=== PATIENT | male | born 1980 | race Caucasian/White ===

== ENCOUNTER → 2019-09-18 15:42 | Outpatient (CLI) | payer OTHER, SELFPAY ==
--- NOTE | 2019-09-18 | DI.MRI.S_ITS ---
PROCEDURE: MR ANKLE LT WO CON INDICATIONS: Plantar fascial fibromatosis TECHNIQUE: Noncontrast sagittal T1 spin echo and T2 fast spin echo with fat saturation, axial proton density fast spin echo and T2 fast spin echo with fat saturation, coronal T1 spin echo and T2 fast spin echo with fat saturation through the ankle/hindfoot. COMPARISON: [facility], CR, ANKLE 3 VIEWS LEFT, 08/24/2017, 20:31. [facility], CR, ANKLE 3 VIEWS LEFT, 09/08/2017, 3:52. [facility], MR, MR FOOT RT WO CON, 09/18/2019, 17:08. [facility], MR, MR FOOT LT WO CON, 09/18/2019, 18:39. [facility], MR, MR ANKLE RT WO CON, 09/18/2019, 16:40. FINDINGS: Image quality: Excellent. Bones and joints: No bone marrow contusions or fractures. No hindfoot coalitions. No osteochondral injuries of the talar dome. No pathologic joint effusions. Medial structures: The posterior tibialis, flexor digitorum longus, and flexor hallucis longus tendons are intact. There is fluid surrounding the posterior tibialis and flexor digitorum longus tendons in keeping with mild tenosynovitis. The posterior tibial neurovascular bundle appears normal within the tarsal tunnel, without extrinsic mass effect. The deep layer (anterior and posterior tibiotalar ligaments) and superficial layer (tibionavicular, tibiospring, and tibiocalcaneal ligaments) of the deltoid ligament appear normal. The spring ligament appears thickened with some intrasubstance signal change Lateral structures: The anterior talofibular, calcaneofibular, and posterior talofibular ligaments appear intact. More superiorly, the anterior and posterior tibiofibular ligaments appear intact, as is the intermalleolar ligament. The tibiofibular syndesmosis is normal in width at 2 mm or less. The peroneus longus and brevis tendons demonstrate normal location and morphology. There is low-grade peroneal tenosynovitis Adjacent bony peroneal tubercle and retrotrochlear prominence are normal in size. The sinus tarsi demonstrates normal fatty signal, without edema, fibrosis, or cyst formation. Visualized sinus tarsi components (cervical ligament, interosseous talocalcaneal ligament, roots of the inferior extensor retinaculum) appear normal. The calcaneonavicular and calcaneocuboid components of the bifurcate ligament appear intact. The dorsal calcaneocuboid ligament appears intact. Anterior structures: The tibialis anterior, extensor hallucis longus, and extensor digitorum longus tendons appear intact. The dorsal talonavicular ligament appears intact. Posterior and plantar structures: Achilles tendon is intact. There is mild medial band plantar fasciitis with thickening and this appears less conspicuous compared to the contralateral right side. No abductor digiti quinti muscle atrophy to suggest [place] neuropathy. IMPRESSION: Mild medial band plantar fasciitis at the calcaneal attachment, technically age-indeterminate Mild distal Achilles insertional tendinopathy Low-grade posterior tibialis, flexor digitorum longus, and peroneal tenosynovitis Age-indeterminate sprain of the spring ligament. Weightbearing ankle radiographs could be performed as clinically warranted to assess for pes planus. Dictated by: Ken Camarillo M.D. on 09/21/2019 at 9:14 Approved by: Ken Camarillo M.D. on 09/21/2019 at 9:47
--- NOTE | 2019-09-18 | DI.MRI.S_ITS ---
PROCEDURE: MR FOOT RT WO CON INDICATIONS: Plantar fascial fibromatosis TECHNIQUE: Noncontrast sagittal T1 spin echo and T2 fast spin echo with fat saturation, long-axis T1 spin echo and T2 fast spin echo with fat saturation, short-axis T1 spin echo and T2 fast spin echo with fat saturation through the forefoot. COMPARISON: [facility], MR, MR ANKLE RT WO CON, 09/18/2019, 16:40. FINDINGS: Image quality: Excellent. Bones and joints: No bone marrow contusions or metatarsal stress fractures. The sesamoid bones appear in expected positions, without internal edema. No metatarsophalangeal joint degeneration. No intraosseous lesions. Diffuse midfoot degenerative spurring and sclerosis. Soft tissues: Diffuse MTP joint effusions. There is mild focal fluid/edema at the dorsal aspect of the second metatarsal base of unclear etiology, this is subcentimeter in overall extent and indeterminate age. The second toe extensor tendons appear grossly intact and the appearance would be unusual for tenosynovitis. This could conceivably represent poorly defined ganglion cyst, technically nonspecific. A probable subcentimeter ganglion cyst and at the dorsal aspect of the first TMT joint image 28/5. The visualized plantar foot muscles demonstrate normal signal and bulk. Visualized flexor and extensor tendons appear intact, without tenosynovitis. The distal insertions of the peroneus brevis and longus tendons appear intact. The principal Lisfranc ligament appears intact. No soft tissue ganglion cysts or bursal fluid collections. Sagittal images demonstrate no evidence for plantar plate tears. IMPRESSION: Diffuse MTP joint effusions, technically non-specific clinical significance. Elsewhere, degenerative changes as above Subcentimeter focus of fluid/edema along the dorsal aspect of the second metatarsal base, probably chronic/degenerative although technically indeterminate recommend correlation with point tenderness The distal aspect of the plantar fascia appears grossly normal. Dictated by: Ken Camarillo M.D. on 09/21/2019 at 8:33 Approved by: Ken Camarillo M.D. on 09/21/2019 at 8:47
--- NOTE | 2019-09-18 | DI.MRI.S_ITS ---
PROCEDURE: MR ANKLE RT WO CON INDICATIONS: Plantar fascial fibromatosis TECHNIQUE: Noncontrast sagittal T1 spin echo and T2 fast spin echo with fat saturation, axial proton density fast spin echo and T2 fast spin echo with fat saturation, coronal T1 spin echo and T2 fast spin echo with fat saturation through the ankle/hindfoot. COMPARISON: None. FINDINGS: Image quality: Motion degraded examination. Bones and joints: No bone marrow contusions or fractures. No hindfoot coalitions. No osteochondral injuries of the talar dome. No pathologic joint effusions. Medial structures: The posterior tibialis, flexor digitorum longus, and flexor hallucis longus tendons are intact. There is mild posterior tibialis and flexor digitorum longus tenosynovitis The posterior tibial neurovascular bundle appears normal within the tarsal tunnel, without extrinsic mass effect. The deep layer (anterior and posterior tibiotalar ligaments) and superficial layer (tibionavicular, tibiospring, and tibiocalcaneal ligaments) of the deltoid ligament appear normal. The spring ligament components (superomedial calcaneonavicular, medioplantar oblique calcaneonavicular, and inferoplantar longitudinal ligaments) are intact. Lateral structures: The anterior talofibular, calcaneofibular, and posterior talofibular ligaments appear intact. More superiorly, the anterior and posterior tibiofibular ligaments appear intact, as is the intermalleolar ligament. The tibiofibular syndesmosis is normal in width at 2 mm or less. The peroneus longus and brevis tendons demonstrate normal location and morphology. There is peroneal tenosynovitis Adjacent bony peroneal tubercle and retrotrochlear prominence are normal in size. The sinus tarsi demonstrates normal fatty signal, without edema, fibrosis, or cyst formation. Visualized sinus tarsi components (cervical ligament, interosseous talocalcaneal ligament, roots of the inferior extensor retinaculum) appear normal. The calcaneonavicular and calcaneocuboid components of the bifurcate ligament appear intact. The dorsal calcaneocuboid ligament appears intact. Anterior structures: The tibialis anterior, extensor hallucis longus, and extensor digitorum longus tendons appear intact. The dorsal talonavicular ligament appears intact. Posterior and plantar structures: Achilles tendon is intact although there is minimal insertional tendinopathy, with mild adjacent soft tissue edema. Age-indeterminate medial plantar fasciitis IMPRESSION: Medial band plantar fasciitis, technically age-indeterminate Mild insertional Achilles tendinopathy Mild posterior tibialis, flexor digitorum longus and peroneal tenosynovitis Dictated by: Ken Camarillo M.D. on 09/21/2019 at 8:23 Approved by: Ken Camarillo M.D. on 09/21/2019 at 8:33
--- NOTE | 2019-09-18 | DI.MRI.S_ITS ---
PROCEDURE: MRFOOT LT WO CON INDICATIONS: Plantar fascial fibromatosis TECHNIQUE: Noncontrast sagittal T1 spin echo and T2 fast spin echo with fat saturation, long-axis T1 spin echo and T2 fast spin echo with fat saturation, short-axis T1 spin echo and T2 fast spin echo with fat saturation through the forefoot. COMPARISON: [facility], MR, MR ANKLE LT WO CON, 09/18/2019, 18:12. FINDINGS: Image quality: There is mild inhomogeneous fat saturation. Bones and joints: No bone marrow contusions or fractures. No evidence of stress reaction or stress fracture. The sesamoid bones appear in expected positions, without internal edema. There is minimal 1st metatarsophalangeal joint degeneration with minimal osteophytosis. A small amount of joint fluid is demonstrated at the 1st metatarsophalangeal joint. No intraosseous lesions. Soft tissues: The visualized plantar foot muscles demonstrate normal signal and bulk. Visualized flexor and extensor tendons appear intact, without tenosynovitis. The distal insertions of the peroneus brevis and longus tendons appear intact. The principal Lisfranc ligament appears intact. No soft tissue ganglion cysts. There is trace intermetatarsal bursa fluid within the 2nd and 3rd metatarsal interspaces. Sagittal images demonstrate no evidence for plantar plate tears. The visualized plantar fascia demonstrates no focal thickening or associated edema. IMPRESSION: 1. No focal thickening of the visualized plantar fascia or associated edema in the forefoot. 2. Minimal degeneration of the 1st metatarsophalangeal joint. Dictated by: Quincy Zapata M.D. on 09/21/2019 at 8:26 Approved by: Quincy Zapata M.D. on 09/21/2019 at 8:32
== END ==
PROVIDERS: PCP Family Medicine; Referring Provider Family Medicine; Visit Provider Podiatrist
DX: M72.2 Plantar fascial fibromatosis (principal); M65.871 Other synovitis and tenosynovitis, right ankle and foot; M65.872 Other synovitis and tenosynovitis, left ankle and foot; M25.474 Effusion, right foot; M79.671 Pain in right foot; M79.672 Pain in left foot; M76.61 Achilles tendinitis, right leg; M10.00 Idiopathic gout, unspecified site; R26.2 Difficulty in walking, not elsewhere classified; G89.29 Other chronic pain
CPT/HCPCS: 73718; 73721

== ENCOUNTER → 2019-12-29 11:37 | Outpatient (CLI) | payer OTHER, SELFPAY ==
--- NOTE | 2019-12-29 | DI.MRI.S_ITS ---
PROCEDURE: MR CERVICAL SPINE WO CON INDICATIONS: Cervicalgia TECHNIQUE: Noncontrast sagittal T1 spin echo and T2 fast spin echo, sagittal STIR, foraminal oblique sagittal T2 fast spin echo, and axial gradient echo or T2 fast spin echo through the cervical spine. COMPARISON: None. FINDINGS: Image quality: Excellent. Alignment and Curvature: Straightening of the normal lordotic curvature. Bone Marrow: Marrow demonstrates normal overall signal. Spinal Cord: Visualized spinal cord has normal size and signal. No cerebellar tonsillar herniation. Paraspinous Soft Tissues: No paravertebral masses. Prevertebral soft tissues are normal in thickness. C2-C3: Normal appearance. C3-C4: Moderate canal narrowing. Mild bilateral foraminal narrowing, with borderline nerve root compression on both sides. C4-C5: Mild canal narrowing. Mild to moderate left foraminal stenosis with neurocompression. No right foraminal narrowing. C5-C6: Mild canal narrowing. No right foraminal stenosis. Mild to moderate left foraminal narrowing with slight nerve root compression. C6-C7: Mild canal narrowing. Minimal right foraminal stenosis. Severe left foraminal narrowing with nerve root compression. C7-T1: No canal stenosis. Mild right foraminal narrowing with slight nerve root compression. Severe left foraminal stenosis with nerve root compression. IMPRESSION: Straightening of the normal lordotic curvature. Moderate C3-C4 canal stenosis. Numerous bilateral foraminal stenoses as detailed above. Diffuse facet arthropathy Dictated by: Ken Camarillo M.D. on 12/29/2019 at 14:14 Approved by: Ken Camarillo M.D. on 12/29/2019 at 14:56
[2019-12-29 13:44] LABS: Erythrocyte Sedimentation Rate 2 MM/HR (0-15)
[2019-12-29 14:47] LABS: C-Reactive Protein Quant 1.1 mg/dL (<1.0); Rheumatoid Factor 9.6 IU/mL (<12.0)
[2019-12-31 14:12] LABS: ANA Screen, IFA Negative (.)
[2019-12-31 21:36] LABS: CCP Antibodies IgG/IgA 4 units (0-19)
== END ==
PROVIDERS: PCP Family Medicine; Referring Provider Psychiatry & Neurology Neurology; Visit Provider Psychiatry & Neurology Neurology
DX: M54.2 Cervicalgia (principal); M48.02 Spinal stenosis, cervical region; M47.812 Spondylosis without myelopathy or radiculopathy, cervical region; G89.4 Chronic pain syndrome
CPT/HCPCS: 36415; 72141; 85651; 86038; 86140; 86200; 86430

== ENCOUNTER → 2020-03-18 06:40 | Outpatient (CLI) | payer OTHER, SELFPAY ==
--- NOTE | 2020-03-18 07:11 | DI.ECHO.S_ITS ---
Echocardiogram Report + + :Name: NIKOLAY CASTILLO Study Date: 03/18/2020 Height: 72 in : :[facility] Weight: 299 lb : : Gender: Male BSA: 2.5 m2 : :: 1980 Age: 39 yrs BP: 130/96 mmHg: :Reason For Study: Murmur : :Ordering Physician: QTC Performed By: Yanni Tony : :Referring: OG BURROUGHS : + + Interpretation Summary 1) Normal left ventricular size and systolic function (EF 55-60%). 2) There are no obvious focal wall motion abnormalities noted but poor endocardial definition reduces the sensitivity for the detection of such. 3) Normal right ventricular size and function. 4) No significant valvular abnormalities. 5) Compared to the Echo done 06/29/2014, no significant change. Procedure: A two-dimensional transthoracic echocardiogram with color flow and Doppler was performed. Most of the acoustic windows were suboptimal, but the best imaging was obtained from the parasternal window. Comparison is made with the echocardiogram of 06/29/2014. The patient was in normal sinus rhythm during the exam. Left Ventricle: The left ventricle is normal in size. Left ventricular wall thickness is at the upper limits of normal. There is no ventricular septal defect visualized. The ejection fraction is estimated to be 55-60%. There are no obvious focal wall motion abnormalities noted but poor endocardial definition reduces the sensitivity for the detection of such. Diastolic parameters suggest probable normal left ventricular diastolic function and normal filling pressures. Right Ventricle: The right ventricle is normal in size and function. Atria: Both atria are normal in size. Mitral Valve: The mitral valve is normal in structure and function. There is no mitral regurgitation noted. Aortic Valve: The aortic valve is normal in structure and function. There is no aortic valve stenosis. No aortic regurgitation is present. Tricuspid Valve: The tricuspid valve is normal in structure and function. Pulmonary artery pressures cannot be estimated because of the lack of a measurable TR jet velocity. Pulmonic Valve: The pulmonic valve is not well seen, but is grossly normal. There is a trace or physiologic amount of pulmonic regurgitation. Great Vessels: The aortic root is normal size. The ascending aorta is normal in size. The aortic arch is normal in size. The pulmonary artery is normal size. The inferior vena cava was not visualized. Pericardium/ Pleura There is no pericardial effusion. MMode/2D Measurements & Calculations LVIDd: 5.6 cm Ao root diam: 3.6 cm LVIDs: 3.5 cm asc Aorta Diam: 3.3 cm FS: 37.2 % Ao Arch Diam (Prox Trans): 3.1 cm EPSS: 0.32 cm IVSd: 0.94 cm LVPWd: 1.0 cm LV jasso. diameter/BSA (cm/m^2): 2.2 LV sys. diameter/BSA (cm/m^2): 1.4 LA A2 area: 15.5 cm2 RA long axis: 4.1 cm LA A4 area: 16.8 cm2 RA area: 15.9 cm2 LA length (vol): 4.8 cm RA vol: 52.0 ml LA vol: 46.0 ml RA : 20.6 ml/m2 LA vol index: 18.2 ml/m2 RVD1 (basal): 3.3 cm RVD2 (mid): 2.8 cm TAPSE: 2.4 cm Doppler Measurements & Calculations Ao V2 max: 122.3 cm/sec LVOT Max Lalo: 89.5 cm/sec Ao V2 mean: 88.1 cm/sec LV V1 max P.2 mmHg Ao max P.0 mmHg LV V1 VTI: 20.8 cm Ao mean P.4 mmHg sev ratio: 0.84 Ao V2 VTI: 24.9 cm MV E max lalo: 62.5 cm/sec PA V2 max: 78.9 cm/sec MV A max lalo: 63.2 cm/sec PA V2 mean: 53.6 cm/sec MV E/A: 0.99 PA mean P.4 mmHg Med Peak E' Lalo: 6.8 cm/sec PA Accel Time: 0.12 sec E/E' med: 9.2 Lat Peak E' Lalo: 11.3 cm/sec E/E' lat: 5.5 E/e' average: 7.3 MV dec time: 0.16 sec MV P1/2t: 47.6 msec MV P1/2t max lalo: 62.3 cm/sec MVA(P1/2t): 4.6 cm2 Reading Physician:10:52 AM
== END ==
PROVIDERS: PCP Family Medicine; Referring Provider Family Medicine; Visit Provider Physician Assistant
DX: R01.1 Cardiac murmur, unspecified (principal)
CPT/HCPCS: 93306

== ENCOUNTER 2020-03-18 07:58 | Emergency (ER) | payer OTHER, SELFPAY ==
[2020-03-18 08:10] VITALS: BP 137/89; PULSE 66; RESP 17; TEMP 36.4; O2SAT 99; BMI 40.5
--- NOTE | 2020-03-18 08:33 | DI.RAD.S_ITS ---
PROCEDURE: XR FOOT LT MIN 3V INDICATIONS: foot pain TECHNIQUE: 3 views of the foot were acquired. COMPARISON: None. FINDINGS: Bones: No fractures or dislocations. No suspicious bony lesions. Soft tissues: No tibiotalar joint effusion. Achilles tendon appears normal. IMPRESSION: No acute fracture. No osseous lesion. If symptoms and/or clinical suspicion for pathology persist, further assessment with repeat, or advanced imaging (e.g., CT, MRI, or bone scan) may be helpful for further assessment. Dictated by: Morelia Murrieta M.D. on 03/18/2020 at 8:51 Approved by: Morelia Murrieta M.D. on 03/18/2020 at 8:52
[2020-03-18 08:34] LABS: Add Manual Diff / Slide Review NO; Basophils Absolute Auto 0 /uL (0-100); Basophils Percent Auto 0.5 % (0-2); Eosinophils Absolute Auto 100 /uL (0-450); Eosinophils Percent Auto 1.9 % (2-4); Hematocrit 45.1 % (41-53); Hemoglobin 15.8 g/dL (13.5-17.5); Lymphocytes Absolute Auto 1700 /uL (1100-4500); Mean Corpuscular HGB Conc 35.1 % (30-36); Mean Corpuscular Hemoglobin 31.4 PG (26-34); Mean Corpuscular Volume 89.4 fL (80-100); Monocytes Absolute Auto 800 /uL (0-900); Monocytes Percent Auto 9.7 % (3-14); Neutrophils Absolute Auto 5200 /uL (1500-7000); Neutrophils Percent Auto 65.9 % (50-75); Platelet Count 221 X10^3/uL (150-400); Red Blood Cell Count 5.04 X10^6/uL (4.5-5.9); Red Cell Distribution Width 13.1 % (11.6-14.8); White Blood Cell Count 7.9 X10^3/uL (4.5-11.0)
--- NOTE | 2020-03-18 08:36 | ED.EXTPRO ---
HPI - Extremity Problem General Chief complaint: Extremity Problem,Nontraumatic Stated complaint: rule out gout in left foot Time Seen by Provider: 03/18/20 08:04 Source: patient Mode of arrival: Family Vehicle Limitations: no limitations History of Present Illness HPI Narrative: Patient has history of gout in the feet knees and upper extremities in the past. Last flare-up 1 year ago. Gets significant relief with indomethacin. Is not being followed by rheumatology. Or Podiatry. Sees [facility] provider. Patient did have MRIs of the both feet and ankles September 2019. Please see report below of the left foot. Flare-up started yesterday. Involves the MTP joints of the 2nd and 3rd toes on the left. Denies any new stress injury or footwear. Related Data Previous Rx's Medication Instructions Recorded docusate sodium [Colace] 100 mg PO BID #14 cap 07/16/17 oxycodone 5 mg PO Q4HP PRN #30 tab 07/16/17 sennosides [Senokot] 8.6 mg PO QDAY #10 tab 07/16/17 acetaminophen-codeine 1 tab PO Q4HP PRN #30 tab 08/24/17 hydrocodone-acetaminophen [[place]] 1 - 2 tab PO Q6HP PRN #10 tab 09/08/17 indomethacin 50 mg PO TID #10 cap 03/18/20 Allergies Allergy/AdvReac Type Severity Reaction Status Date / Time DYE FOR SOME BRAIN TEST Allergy Unknown Hives Uncoded 03/18/20 08:14 Review of Systems Review of Systems Narrative: GENERAL: Denies chills, fatigue, malaise, fever, sweats. HEENT: Denies sinus pain, ear pain, sore throat, difficulty swallowing, dizziness. RESPIRATORY: Denies dyspnea, cough, wheezing, hemoptysis, sputum. CARDIOVASCULAR: Denies chest pain, palpitations, orthopnea, edema, GASTROINTESTINAL: Denies nausea, vomiting, abdominal pain, diarrhea, constipation, melena. : Denies dysuria, frequency, incontinence, hematuria, urinary retention. MUSCULOSKELETAL: denies weakness, complains of joint pain, bony pain SKIN: Denies rash, skin lesions NEUROLOGIC: Denies weakness, headache, numbness, change in speech, confusion, seizures, incoordination. PSYCHIATRIC: No concerning psychosocial issues. ROS Unobtainable: All systems reviewed & are unremarkable except as noted in HPI and below Patient History Social History Smoking Status: Former smoker Smoking Status: Former smoker tobacco type: cigarettes alcohol intake frequency: a few times a week Substance Use Type: does not use Exam Narrative Exam Narrative: GENERAL: patient appears stated age. Well-nourished, well-developed patient, in no distress, not toxic HEAD: Atraumatic. Normocephalic. EXTREMITIES: No edema or joint tenderness. Examination left foot. Patient wearing shorts. Shoes and socks off on both feet. Feet grossly symmetric. Left foot warm soft and pink. Strong pedal pulse with light touch intact to foot and toes. Mild erythema dorsal surface overlying the 2nd MTP joint. Tender to touch of 2nd 3rd toes with limited range of motion due to pain. Tenderness proximally to the 2nd and 3rd MTP joints. No plantar tenderness. Ankle nontender. NEURO: AOx4. SKIN: No rash or erythema of visible areas PSYCH: Not anxious, is cooperative Initial Vital Signs Initial Vital Signs: Vital Signs Temperature 97.6 F 03/18/20 08:10 Pulse Rate 66 03/18/20 08:10 Respiratory Rate 17 03/18/20 08:10 Blood Pressure 137/89 03/18/20 08:10 Pulse Oximetry 99 03/18/20 08:10 Course Course Course Narrative: No new issues during course of stay Orders Ordered: ED Orders 03/18/20 08:30 CBC Auto Diff [Complete Blood Count AUTO DIFF] Stat Comprehensive Metabolic Panel Stat Uric Acid Stat 03/18/20 08:33 XR foot LT min 3V Stat Discontinued Medications Indomethacin (Indocin) 75 mg PO NOW ONE Stop: 03/18/20 08:36 Last Admin: 03/18/20 08:44 Dose: 75 mg Documented by: CATHERINE Reevaluation(s) Reevaluation #1: Pain controlled. Labs and x-ray reviewed patient and follow-up plan as well. Not toxic at discharge. Patient desires discharge home Time: 09:27 Vital Signs Vital signs: Vital Signs - 8 hr 03/18/20 08:10 03/18/20 08:55 03/18/20 09:00 Temperature 97.6 F Pulse Rate 66 57 L 62 Respiratory Rate 17 Blood Pressure 137/89 Pulse Oximetry 99 94 95 03/18/20 09:33 Temperature Pulse Rate 54 L Respiratory Rate 18 Blood Pressure 146/84 H Pulse Oximetry 97 MDM - Extremity (Nontraumatic) Differential Diagnosis Differential diagnosis: Likely gout, cellulitis and other (Fracture/strain/tendinitis) Medical Records Attestation: I reviewed the patient's medical records. Medical records narrative: [address] [address] Magnetic Resonance Report Signed Patient: Tao Holland JMR#: [id number] : 1980Acct:[id number] Age/Sex: 38 / MDate of Service: 09/18/19 Loc: MRI Accession Number: [id number] Procedure: MR foot LT wo con Ordering Provider: Miah Gill DPM PROCEDURE: MRFOOT LT WO CON INDICATIONS: Plantar fascial fibromatosis TECHNIQUE: Noncontrast sagittal T1 spin echo and T2 fast spin echo with fat saturation, long-axis T1 spin echo and T2 fast spin echo with fat saturation, short-axis T1 spin echo and T2 fast spin echo with fat saturation through the forefoot. COMPARISON: [facility], , MR ANKLE LT WO CON, 09/18/2019, 18:12. FINDINGS: Image quality: There is mild inhomogeneous fat saturation. Bones and joints: No bone marrow contusions or fractures. No evidence of stress reaction or stress fracture. The sesamoid bones appear in expected positions, without internal edema. There is minimal 1st metatarsophalangeal joint degeneration with minimal osteophytosis. A small amount of joint fluid is demonstrated at the 1st metatarsophalangeal joint. No intraosseous lesions. Soft tissues: The visualized plantar foot muscles demonstrate normal signal and bulk. Visualized flexor and extensor tendons appear intact, without tenosynovitis. The distal insertions of the peroneus brevis and longus tendons appear intact. The principal Lisfranc ligament appears intact. No soft tissue ganglion cysts. There is trace intermetatarsal bursa fluid within the 2nd and 3rd metatarsal interspaces. Sagittal images demonstrate no evidence for plantar plate tears. The visualized plantar fascia demonstrates no focal thickening or associated edema. IMPRESSION: 1. No focal thickening of the visualized plantar fascia or associated edema in the forefoot. 2. Minimal degeneration of the 1st metatarsophalangeal joint. Dictated by: Quincy Zapata M.D. on 09/21/2019 at 8:26 Approved by: Quincy Zapata M.D. on 09/21/2019 at 8:32 Lab Data Attestation: I reviewed the patient's lab results. Result diagrams: 03/18/20 08:30 03/18/20 08:30 Labs: Lab Results 03/18/20 03/18/20 Range/Units 08:30 08:30 WBC 7.9 (4.5-11.0) X10^3/uL RBC 5.04 (4.5-5.9) X10^6/uL Hgb 15.8 (13.5-17.5) g/dL Hct 45.1 (41-53) % MCV 89.4 (80-100) fL MCH 31.4 (26-34) PG MCHC 35.1 (30-36) % RDW 13.1 (11.6-14.8) % Plt Count 221 (150-400) X10^3/uL Neut % (Auto) 65.9 (50-75) % Lymph % (Auto) 22.0 L (25-40) % [place] % (Auto) 9.7 (3-14) % Eos % (Auto) 1.9 L (2-4) % Baso % (Auto) 0.5 (0-2) % Neut # (Auto) 5200 (6308-7615) /uL Lymph # (Auto) 1700 (5354-7400) /uL [place] # (Auto) 800 (0-900) /uL Eos # (Auto) 100 (0-450) /uL Baso # (Auto) 0 (0-100) /uL Sodium 140 (137-145) mmol/L Potassium 3.9 (3.4-5.1) mmol/L Chloride 109 H (98-107) mmol/L Carbon Dioxide 21 L (22-32) mmol/L BUN 16 (9-20) mg/dL Creatinine 1.08 (0.66-1.25) mg/dL Estimated GFR > 60.0 (>60) mL/min BUN/Creatinine Ratio 14.8 (6-22) Glucose 119 H (70-100) mg/dL Uric Acid 6.2 (3.5-8.5) mg/dL Calcium 9.2 (8.4-10.2) mg/dL Total Bilirubin 0.6 (0.2-1.3) mg/dL AST 44 (17-59) IU/L ALT 94 H (<50) IU/L Alkaline Phosphatase 71 (38-126) U/L Total Protein 7.7 (6.3-8.2) g/dL Albumin 4.7 (3.5-5.0) g/dL Globulin 3.0 (1.7-4.1) g/dL Albumin/Globulin Ratio 1.6 (1.0-2.8) Imaging Data Extremity x-ray #1: Radiologist's Impression: [address] [address] XRay Report Signed Patient: Tao Holland JMR#: [id number] : 1980Acct:[id number] Age/Sex: 39 / MDate of Service: 03/18/20 Loc: ED Accession Number: [id number] Procedure: XR foot LT min 3V Ordering Provider: Vernon Klein MD PROCEDURE: XR FOOT LT MIN 3V INDICATIONS: foot pain TECHNIQUE: 3 views of the foot were acquired. COMPARISON: None. FINDINGS: Bones: No fractures or dislocations. No suspicious bony lesions. Soft tissues: No tibiotalar joint effusion. Achilles tendon appears normal. IMPRESSION: No acute fracture. No osseous lesion. If symptoms and/or clinical suspicion for pathology persist, further assessment with repeat, or advanced imaging (e.g., CT, MRI, or bone scan) may be helpful for further assessment. Dictated by: Morelia Murrieta M.D. on 03/18/2020 at 8:51 Approved by: Morelia Murrieta M.D. on 03/18/2020 at 8:52 [facility] Narrative Medical decision making narrative: Appropriate for discharge home. No fever. Labs reviewed. Has appropriate follow-up. Treating clinically for gout flare. Patient has had same area of pain and relieved with indomethacin Discharge Plan Departure Patient Disposition: Home Clinical Impression: Acute pain of left foot Discharge Date/Time: 03/18/20 09:35 Instructions: DI for Gout Activity Restrictions/Additional Instructions: Return if worse. See family doctor next week for recheck. Keep well hydrated while taking new medication. May call provided podiatry office today as well. Prescriptions: New indomethacin 50 mg capsule 50 mg PO TID Qty: 10 RF: 0 No Action oxycodone 5 MG tablet 5 mg PO Q4HP PRNQty: 30 RF: 0 sennosides [Senokot] 8.6 MG tablet 8.6 mg PO QDAY Qty: 10 RF: 1 docusate sodium [Colace] 100 MG capsule 100 mg PO BID Qty: 14 RF: 1 acetaminophen-codeine 30 MG/300 MG tablet 1 tab PO Q4HP PRNQty: 30 RF: 0 hydrocodone-acetaminophen [[place]] 5 MG/325 MG tablet 1 - 2 tab PO Q6HP PRNQty: 10 RF: 0 Referrals: Saravanan Cesar DPM [Physician] - Kami Kessler [Primary Care Provider] -
[2020-03-18] MEDS: INDOMETHACIN 25 MG CAPSULE 75 MG PO (08:44)
[2020-03-18 08:55] VITALS: PULSE 57; O2SAT 94
[2020-03-18 09:00] VITALS: PULSE 62; O2SAT 95
[2020-03-18 09:00] LABS: Alanine Aminotransferase 94 IU/L (<50); Albumin 4.7 g/dL (3.5-5.0); Albumin Globulin Ratio 1.6 (1.0-2.8); Alkaline Phosphatase 71 U/L (38-126); Aspartate Aminotransferase 44 IU/L (17-59); BUN Creatinine Ratio 14.8 (6-22); Bilirubin Total 0.6 mg/dL (0.2-1.3); Blood Urea Nitrogen 16 mg/dL (9-20); Calcium 9.2 mg/dL (8.4-10.2); Carbon Dioxide 21 mmol/L (22-32); Chloride 109 mmol/L (98-107); Estimated Glomerular Filt Rate > 60.0 mL/min (>60); Glucose 119 mg/dL (70-100); HEMOLYSIS < 15 (0-50); Potassium 3.9 mmol/L (3.4-5.1); Sodium 140 mmol/L (137-145); Total Protein 7.7 g/dL (6.3-8.2); Uric Acid 6.2 mg/dL (3.5-8.5)
[2020-03-18 09:33] VITALS: BP 146/84; PULSE 54; RESP 18; O2SAT 97
== END 2020-03-18 09:35 | disposition home or self-care (01) ==
PROVIDERS: Emergency Provider Emergency Medicine; PCP Family Medicine
DX: M79.672 Pain in left foot (principal); Z87.39 Personal history of other diseases of the musculoskeletal system and connective tissue
CPT/HCPCS: 36415; 73630; 80053; 84550; 85025; 99284

== ENCOUNTER 2020-04-06 18:54 | Emergency (ER) | payer OTHER, SELFPAY ==
[2020-04-06 18:58] VITALS: BP 161/101; PULSE 86; RESP 18; TEMP 37; O2SAT 95
[2020-04-06 19:29] LABS: Add Manual Diff / Slide Review NO; Basophils Absolute Auto 100 /uL (0-100); Basophils Percent Auto 1.3 % (0-2); Eosinophils Absolute Auto 200 /uL (0-450); Eosinophils Percent Auto 2.2 % (2-4); Hematocrit 44.9 % (41-53); Hemoglobin 15.1 g/dL (13.5-17.5); Lymphocytes Absolute Auto 2600 /uL (1100-4500); Lymphocytes Percent Auto 31.7 % (25-40); Mean Corpuscular HGB Conc 33.7 % (30-36); Mean Corpuscular Hemoglobin 30.3 PG (26-34); Mean Corpuscular Volume 89.8 fL (80-100); Monocytes Absolute Auto 800 /uL (0-900); Neutrophils Absolute Auto 4500 /uL (1500-7000); Neutrophils Percent Auto 54.8 % (50-75); Platelet Count 250 X10^3/uL (150-400); Red Cell Distribution Width 13.2 % (11.6-14.8); White Blood Cell Count 8.3 X10^3/uL (4.5-11.0)
--- NOTE | 2020-04-06 19:34 | ED.GENADULT ---
HPI - General Adult General Chief complaint: Abdominal Pain Stated complaint: stomach issues Time Seen by Provider: 04/06/20 19:20 Source: patient Mode of arrival: Ambulatory Limitations: no limitations History of Present Illness HPI narrative: Patient is a 39-year-old male here for evaluation of generalized abdominal pain and bloating. He states that he is having normal bowel movements. No nausea or vomiting. He does report some early satiety. No fevers. Has had an umbilical hernia repair in the past but no other abdominal surgeries. Reports the pain has right upper quadrant and across his upper abdomen. He states that the symptoms started several days ago but just continued to worsen over the past 3 days. Related Data Previous Rx's Medication Instructions Recorded docusate sodium [Colace] 100 mg PO BID #14 cap 07/16/17 oxycodone 5 mg PO Q4HP PRN #30 tab 07/16/17 sennosides [Senokot] 8.6 mg PO QDAY #10 tab 07/16/17 acetaminophen-codeine 1 tab PO Q4HP PRN #30 tab 08/24/17 hydrocodone-acetaminophen [[place]] 1 - 2 tab PO Q6HP PRN #10 tab 09/08/17 indomethacin 50 mg PO TID #10 cap 03/18/20 esomeprazole magnesium [Nexium 20 mg PO DAILY #30 cap 04/06/20 24HR] Allergies Allergy/AdvReac Type Severity Reaction Status Date / Time DYE FOR SOME BRAIN TEST Allergy Unknown Hives Uncoded 03/18/20 08:14 Review of Systems Constitutional Constitutional: Denies fever(s) Cardiovascular Cardiovascular: Denies chest pain and Denies dyspnea Respiratory Respiratory: Denies dyspnea Gastrointestinal Gastrointestinal: Reports abdominal pain, Denies melena, Reports bloating, Denies change in bowel habits, Denies nausea and Denies vomiting Genitourinary Genitourinary: Denies dysuria Genitourinary: Denies dysuria Musculoskeletal Musculoskeletal: Denies arthralgias and Denies myalgias Integumentary/Breasts Skin/Breast: Denies lesions and Denies rash Neurologic Neurologic: Denies behavioral changes Psychiatric Psychiatric: Denies behavioral changes Hematologic/Lymphatic Hematologic/Lymphatic: Denies easy bleeding and Denies easy bruising Allergic/Immunologic Allergic/Immunologic: Denies urticaria Patient History Medical History Ankle pain (Inactive) Knee pain, left (Inactive) Left ankle pain (Inactive) Umbilical hernia (Inactive) Surgical History History of umbilical hernia repair (Acute) Social History Smoking Status: Former smoker Smoking Status: Former smoker tobacco type: cigarettes alcohol intake frequency: a few times a week Substance Use Type: does not use Exam Initial Vital Signs Initial Vital Signs: Vital Signs Temperature 98.6 F 04/06/20 18:58 Pulse Rate 86 04/06/20 18:58 Respiratory Rate 18 04/06/20 18:58 Blood Pressure 161/101 H 04/06/20 18:58 Pulse Oximetry 95 04/06/20 18:58 Const General: cooperative and comfortable Limitations: mental status not altered HENMT Head: normal to inspection and normocephalic Resp Effort & Inspection: normal respiratory effort Auscultation: clear to auscultation bilaterally Cardio Rate: regular rate Rhythm: regular rhythm GI Inspection: non-distended Palpation: soft, No firm and tender (Upper abdomen) Skin Lesions: no lesions Rashes: no rashes Neuro General: patient alert, patient awake and patient oriented x3 Cognition: normal cognition Speech: speech normal Extrem General: normal to inspection and capillary refill normal Psych Appearance: grossly normal and well kempt Course Orders Ordered: ED Orders 04/06/20 19:01 EKG-12 Lead Stat 04/06/20 19:20 Complete Blood Count AUTO DIFF Stat Comprehensive Metabolic Panel Stat Lipase Stat Partial Thromboplastin Time Stat Prothrombin Time INR Stat 04/06/20 19:34 CT abdomen pelvis w con Stat 04/06/20 21:10 US abdomen limited Stat Discontinued Medications Diphenhydramine HCl (Benadryl) 25 mg IV NOW ONE Stop: 04/06/20 19:55 Last Admin: 04/06/20 20:22 Dose: Not Given Documented by: MMCFARL Methylprednisolone (Solu-Medrol 125 Mg Vial) 125 mg IV NOW ONE Stop: 04/06/20 19:54 Last Admin: 04/06/20 20:04 Dose: 125 mg Documented by: TIERNEY Vital Signs Vital signs: Vital Signs - 8 hr 04/06/20 18:58 04/06/20 21:02 04/06/20 21:03 Temperature 98.6 F Pulse Rate 86 62 60 Respiratory Rate 18 Blood Pressure 161/101 H 137/77 137/77 Pulse Oximetry 95 95 96 04/06/20 22:41 Temperature Pulse Rate 60 Respiratory Rate Blood Pressure 131/75 Pulse Oximetry 96 Medical Decision Making Lab Data Lab results reviewed: Yes I reviewed the patient's lab results. Result diagrams: 04/06/20 19:20 04/06/20 19:20 Labs: Lab Results 04/06/20 04/06/20 04/06/20 Range/Units 19:20 19:20 19: WBC 8.3 (4.5-11.0) X10^3/uL RBC 5.00 (4.5-5.9) X10^6/uL Hgb 15.1 (13.5-17.5) g/dL Hct 44.9 (41-53) % MCV 89.8 (80-100) fL MCH 30.3 (26-34) PG MCHC 33.7 (30-36) % RDW 13.2 (11.6-14.8) % Plt Count 250 (150-400) X10^3/uL Neut % (Auto) 54.8 (50-75) % Lymph % (Auto) 31.7 (25-40) % [place] % (Auto) 10.0 (3-14) % Eos % (Auto) 2.2 (2-4) % Baso % (Auto) 1.3 (0-2) % Neut # (Auto) 4500 (2557-0874) /uL Lymph # (Auto) 2600 (5184-4131) /uL [place] # (Auto) 800 (0-900) /uL Eos # (Auto) 200 (0-450) /uL Baso # (Auto) 100 (0-100) /uL PT 11.8 (10.1-12.7) SECONDS INR 1.0 (0.9-1.3) APTT 40 H (26.4-36.2) SECONDS Sodium 142 (137-145) mmol/L Potassium 3.9 (3.4-5.1) mmol/L Chloride 109 H (98-107) mmol/L Carbon Dioxide 23 (22-32) mmol/L BUN 14 (9-20) mg/dL Creatinine 1.12 (0.66-1.25) mg/dL Estimated GFR > 60.0 (>60) mL/min BUN/Creatinine Ratio 12.5 (6-22) Glucose 101 H (70-100) mg/dL Calcium 9.3 (8.4-10.2) mg/dL Total Bilirubin 0.6 (0.2-1.3) mg/dL AST 50 (17-59) IU/L ALT 87 H (<50) IU/L Alkaline Phosphatase 70 (38-126) U/L Total Protein 7.8 (6.3-8.2) g/dL Albumin 4.6 (3.5-5.0) g/dL Globulin 3.2 (1.7-4.1) g/dL Albumin/Globulin Ratio 1.4 (1.0-2.8) Lipase 73 (23-300) U/L Imaging Data CT scan - abdomen/pelvis: Radiologist's Impression: [address] [address] [address] Scan Report Signed Patient: Tao Holland JMR#: [id number] : 1980Acct:[id number] Age/Sex: 39 / MDate of Service: 04/06/20 Loc: ED Accession Number: [id number] Procedure: CT abdomen pelvis w con Ordering Provider: Kofi Maciel D.O. PROCEDURE: CT ABDOMEN PELVIS W CON INDICATIONS: Generalized abdominal pain TECHNIQUE: After the administration of intravenous contrast, 5 mm thick sections acquired from the diaphragm to the symphysis. 5 mm coronal and sagittal reformats were acquired. For radiation dose reduction, the following was used: automated exposure control, adjustment of mA and/or kV according to patient size. COMPARISON: None. FINDINGS: Image quality: Excellent. ABDOMEN: Lung bases: Lung bases are clear. Heart size is normal. Solid organs: Liver is enlarged and demonstrates diffusely decreased density. Gallbladder is within normal limits. Biliary system is non dilated. Pancreas enhances normally. Spleen is normal in size and enhancement. No adrenal nodules. Kidneys demonstrate normal size and enhancement, without hydronephrosis. Peritoneum and bowel: Small hiatal hernia. Bowel loops demonstrate normal wall thickness and caliber. No free fluid or air. Normal appendix. Nodes and vessels: No retroperitoneal or mesenteric adenopathy by size criteria. Aorta and inferior vena cava are normal in size. Miscellaneous: No ventral hernias. There is a lobular soft tissue density within the periumbilical region measuring 30 mm with mild surrounding fat stranding. PELVIS: Genitourinary: Bladder wall thickness is normal. Miscellaneous: No inguinal hernias or adenopathy. Bones: No suspicious bony lesions. No vertebral body compression fractures. IMPRESSION: 1. Soft tissue density focus in the umbilical region with surrounding inflammation. Findings may indicate infection or inflammation (possibly secondary to urachal remnant). Continued follow-up is recommended to exclude underlying neoplasm. 2. Normal appendix. 3. Hepatic steatosis. Dictated by: Morelia Murrieta M.D. on 04/06/2020 at 20:49 Approved by: Morelia Murrieta M.D. on 04/06/2020 at 20:52 US - abdomen: Radiologist's Impression: [address] [address] Ultrasound Report Signed Patient: Tao Holland JMR#: [id number] : 1980Acct:[id number] Age/Sex: 39 / MDate of Service: 04/06/20 Loc: ED Accession Number: [id number] Procedure: US abdomen limited Ordering Provider: Kofi Maciel D.O. PROCEDURE: US ABDOMEN LIMITED INDICATIONS: RIGHT UPPER QUADRANT PAIN TECHNIQUE: Real-time focused scanning was performed of the abdomen, with image documentation. COMPARISON: None. FINDINGS: Gallbladder is within normal limits, without wall thickening. Liver is enlarged and demonstrates diffusely decreased echogenicity. No biliary ductal dilatation. Pancreas is not well seen. IMPRESSION: 1. Hepatic steatosis. 2. No evidence of cholecystitis. Dictated by: Morelia Murrieta M.D. on 04/06/2020 at 21:54 Approved by: Morelia Murrieta M.D. on 04/06/2020 at 21:55 ECG Data Attestation: I personally reviewed and interpreted this ECG as follows: Prior ECG tracings: not available for review Interpretation: Sinus rhythm Ventricular rate is 66 Normal axis Normal QRS Normal QTC No ST T wave changes MDM Narrative Medical decision making narrative: Patient does have a benign abdominal exam. His abdomen is not distended however he reports that he is bloated. He has no tenderness around his umbilicus. There is no umbilical hernia. His skin around the umbilicus is unremarkable. His CT scan of the abdomen shows no acute pathology. Right upper quadrant ultrasound was ordered because he was having pain in this right upper quadrant this is unremarkable. There are no signs of infection on the exam. He is not having any fevers. He is still having bowel movements. He is urinating without any problems. Feel there is no indication for surgical consultation. No indication for antibiotic. He was informed that he should contact his primary doctor to discuss further evaluation. He is not currently on any reflux or ulcer medications. Given the location of his symptoms I feel starting him on a PPI is not unreasonable to see if it does not improve things. Patient was given return precautions and follow-up instructions. He expressed understanding and agreement. Discharge Plan Departure Patient Disposition: Home Clinical Impression: Abdominal pain Qualifiers: Abdominal location: unspecified location Qualified Code(s): R10.9 - Unspecified abdominal pain Discharge Date/Time: 04/06/20 22:41 Instructions: DI for Abdominal Pain-Adult Activity Restrictions/Additional Instructions: Recommend that you start taking a anti reflux medication as directed. You were given a prescription for this medication. Contact your primary provider for follow-up. Return to the emergency department for any new or worsening symptoms Prescriptions: New esomeprazole magnesium [Nexium 24HR] 20 mg capsule,delayed release(DR/EC) 20 mg PO DAILY Qty: 30 RF: 0 No Action oxycodone 5 MG tablet 5 mg PO Q4HP PRNQty: 30 RF: 0 sennosides [Senokot] 8.6 MG tablet 8.6 mg PO QDAY Qty: 10 RF: 1 docusate sodium [Colace] 100 MG capsule 100 mg PO BID Qty: 14 RF: 1 acetaminophen-codeine 30 MG/300 MG tablet 1 tab PO Q4HP PRNQty: 30 RF: 0 hydrocodone-acetaminophen [[place]] 5 MG/325 MG tablet 1 - 2 tab PO Q6HP PRNQty: 10 RF: 0 indomethacin 50 mg capsule 50 mg PO TID Qty: 10 RF: 0 Referrals: Kami Kessler [Primary Care Provider] -
[2020-04-06 19:36] LABS: Prothrombin Time 11.8 SECONDS (10.1-12.7)
[2020-04-06 19:39] LABS: PTT Partial Thromboplastin Tim 40 SECONDS (26.4-36.2)
[2020-04-06 19:41] LABS: Alanine Aminotransferase 87 IU/L (<50); Albumin 4.6 g/dL (3.5-5.0); Albumin Globulin Ratio 1.4 (1.0-2.8); Alkaline Phosphatase 70 U/L (38-126); Aspartate Aminotransferase 50 IU/L (17-59); BUN Creatinine Ratio 12.5 (6-22); Bilirubin Total 0.6 mg/dL (0.2-1.3); Blood Urea Nitrogen 14 mg/dL (9-20); Calcium 9.3 mg/dL (8.4-10.2); Carbon Dioxide 23 mmol/L (22-32); Chloride 109 mmol/L (98-107); Estimated Glomerular Filt Rate > 60.0 mL/min (>60); Globulin 3.2 g/dL (1.7-4.1); Glucose 101 mg/dL (70-100); HEMOLYSIS 17 (0-50); Lipase 73 U/L (23-300); Potassium 3.9 mmol/L (3.4-5.1); Sodium 142 mmol/L (137-145); Total Protein 7.8 g/dL (6.3-8.2)
[2020-04-06] MEDS: methylPREDNISolone 125 MG/2 ML VIAL IV (20:04)
[2020-04-06 21:02] VITALS: BP 137/77; PULSE 62; O2SAT 95
[2020-04-06 21:03] VITALS: BP 137/77; PULSE 60; O2SAT 96
--- NOTE | 2020-04-06 21:10 | DI.US.S_ITS ---
PROCEDURE: US ABDOMEN LIMITED INDICATIONS: RIGHT UPPER QUADRANT PAIN TECHNIQUE: Real-time focused scanning was performed of the abdomen, with image documentation. COMPARISON: None. FINDINGS: Gallbladder is within normal limits, without wall thickening. Liver is enlarged and demonstrates diffusely decreased echogenicity. No biliary ductal dilatation. Pancreas is not well seen. IMPRESSION: 1. Hepatic steatosis. 2. No evidence of cholecystitis. Dictated by: Morelia Murrieta M.D. on 04/06/2020 at 21:54 Approved by: Morelia Murrieta M.D. on 04/06/2020 at 21:55
[2020-04-06 22:41] VITALS: BP 131/75; PULSE 60; O2SAT 96
== END 2020-04-06 22:41 | disposition home or self-care (01) ==
PROVIDERS: Emergency Provider Emergency Medicine; PCP Family Medicine
DX: R10.9 Unspecified abdominal pain (principal)
CPT/HCPCS: 36415; 74177; 76705; 80053; 83690; 85025; 85610; 85730; 93005; 96374; 99284; J2930; Q9967

== ENCOUNTER 2020-06-06 10:19 | Emergency (ER) | payer OTHER, SELFPAY ==
[2020-06-06] VITALS (15 sets, daily range): BP systolic 103–128; BP diastolic 50–76; PULSE 57–71; RESP 16–18; TEMP 36.4; O2SAT 92–99; BMI 41.5
--- NOTE | 2020-06-06 10:56 | DI.CT.S_ITS ---
PROCEDURE: CT ABDOMEN PELVIS W CON INDICATIONS: umbilical pain hx of repair TECHNIQUE: After the administration of intravenous contrast, 5 mm thick sections acquired from the diaphragm to the symphysis. 5 mm coronal and sagittal reformats were acquired. For radiation dose reduction, the following was used: automated exposure control, adjustment of mA and/or kV according to patient size. COMPARISON: [facility], CT, CT ABDOMEN PELVIS W CON, 04/06/2020, 20:13. FINDINGS: Image quality: Excellent. ABDOMEN: Lung bases: Mild dependent atelectasis is seen in the lung bases. Heart size is normal. Solid organs: Diffusely decreased attenuation of the liver is compatible with diffuse hepatic steatosis. Enhancement surrounding the gallbladder fossa is most likely focal fatty sparing. Gallbladder appears normal. Biliary system is non dilated. Pancreas enhances normally. Spleen is normal in size and enhancement. No adrenal nodules. Kidneys demonstrate normal size and enhancement, without hydronephrosis. Peritoneum and bowel: Scattered diverticula are seen in the colon without signs of acute diverticulitis. The appendix appears normal. There are no signs of bowel obstruction. No free fluid or air. Nodes and vessels: No retroperitoneal or mesenteric adenopathy by size criteria. Aorta and inferior vena cava are normal in size. Miscellaneous: No ventral hernias. Focal soft tissue density is again seen in the periumbilical region with mildly increased surrounding fat stranding. PELVIS: Genitourinary: Bladder wall thickness is normal. Miscellaneous: No inguinal hernias or adenopathy. Bones: No suspicious bony lesions. No vertebral body compression fractures. IMPRESSION: 1. Focal soft tissue density is again seen in the umbilical region with increased surrounding fat stranding when compared to the prior CT from 04/06/2020, possibly related to inflammation or infection and/or postsurgical changes. 2. Colonic diverticulosis without signs of acute diverticulitis 3. Diffuse hepatic steatosis. Dictated by: Nadir Ford M.D. on 06/06/2020 at 11:29 Approved by: Nadir Ford M.D. on 06/06/2020 at 11:38
[2020-06-06] MEDS: methylPREDNISolone 125 MG/2 ML VIAL IV (11:14)
[2020-06-06] MEDS: SODIUM CHLORIDE 0.9% 1,000 ML 150 ML IV (11:14)
[2020-06-06] MEDS: diphenhydrAMINE 50 MG/ML VIAL 25 MG IV (11:14)
--- NOTE | 2020-06-06 11:16 | ED_ITS ---
HPI - Abdominal Pain General Chief Complaint: Abdominal Pain Stated Complaint: ABD Pain Time Seen by Provider: 06/06/20 10:50 Source: patient Mode of arrival: Ambulatory Limitations: no limitations History of Present Illness HPI narrative: Patient is a 39-year-old male who has a history of umbilical hernia repair presenting with about 5 days of periumbilical pain. He has had normal bowel movements no nausea or vomiting. But exquisite pain right around the umbilicus. He denies any fevers. It is worse when he coughs sneezes or moves MD complaint: abdominal pain Pain Consistency: constant Location: periumbilical Quality: sharp Related Data Previous Rx's Medication Instructions Recorded docusate sodium [Colace] 100 mg PO BID #14 cap 07/16/17 oxycodone 5 mg PO Q4HP PRN #30 tab 07/16/17 sennosides [Senokot] 8.6 mg PO QDAY #10 tab 07/16/17 acetaminophen-codeine 1 tab PO Q4HP PRN #30 tab 08/24/17 hydrocodone-acetaminophen [Tigerton] 1 - 2 tab PO Q6HP PRN #10 tab 09/08/17 indomethacin 50 mg PO TID #10 cap 03/18/20 esomeprazole magnesium [Nexium 20 mg PO DAILY #30 cap 04/06/20 24HR] ketorolac 10 mg PO TID PRN #10 tab 06/06/20 Allergies Allergy/AdvReac Type Severity Reaction Status Date / Time DYE FOR SOME BRAIN TEST Allergy Unknown Hives Uncoded 03/18/20 08:14 Review of Systems Review of Systems Narrative: GENERAL: Denies chills, fatigue, malaise, fever, sweats, travel HEENT: Denies sinus pain, ear pain, sore throat, difficulty swallowing, neck pain RESPIRATORY: Denies dyspnea, cough, wheezing, hemoptysis, sputum. CARDIOVASCULAR: Denies chest pain, palpitations, orthopnea, edema GASTROINTESTINAL: See HPI : Denies dysuria, frequency, incontinence, hematuria, urinary retention, flank pain. MUSCULOSKELETAL: Denies weakness, joint pain, or bony pain SKIN: No rash, no erythema, no pruritus NEUROLOGIC: Denies weakness, dizziness, headache, numbness, change in speech, confusion PSYCHIATRIC: No concerning psychosocial issues. 12 point review of systems is negative except for those stated above and HPI Patient History Medical History Ankle pain Knee pain, left Left ankle pain Umbilical hernia Surgical History History of umbilical hernia repair Social History Smoking Status: Former smoker Smoking Status: Former smoker tobacco type: cigarettes alcohol intake frequency: a few times a week Substance Use Type: does not use Exam Initial Vital Signs Initial Vital Signs: Vital Signs Pulse Rate 69 06/06/20 10:47 Blood Pressure 128/76 06/06/20 10:47 Pulse Oximetry 98 06/06/20 10:47 GENERAL: Well-appearing, well-nourished and in no acute distress. HEENT: Head atraumatic,EOMI, pupils reactive, face symmetric, moist mucous membranes CARDIOVASCULAR: Regular rate and rhythm without murmurs, rubs or gallops. RESPIRATORY: Breath sounds equal bilaterally, no wheezes rales or rhonchi. ABDOMEN: Soft, slightly overweight tender around the periumbilical area no fluctuation no erythema no bulging EXTREMITIES: Normal range of motion, no clubbing or edema. Neurovascularly intact NEUROLOGICAL: Alert and oriented x4.Normal gait and speech. Cranial nerves II through XII grossly intact. SKIN: Warm, dry, no laceration, no petechiae, no rashes or lesions. Course Orders Ordered: ED Orders 06/06/20 11:13 Complete Blood Count AUTO DIFF Stat Comprehensive Metabolic Panel Stat Lipase Stat Discontinued Medications Diphenhydramine HCl (Diphenhydramine 50 Mg/Ml Vial) 25 mg IV NOW ONE Stop: 06/06/20 11:05 Last Admin: 06/06/20 11:14 Dose: 25 mg Documented by: ROGER Sodium Chloride (Normal Saline 0.9%) 1,000 mls @ 150 mls/hr IV CONT AVRIL Last Infusion: 06/06/20 14:48 Dose: 0 mls/hr Documented by: Admin: 06/06/20 11:14 Dose: 150 mls/hr Documented by: ROGER Ketorolac Tromethamine (Ketorolac 60 Mg/2 Ml Vial) 30 mg IV NOW ONE Stop: 06/06/20 13:45 Last Admin: 06/06/20 14:29 Dose: 30 mg Documented by: ROGER Methylprednisolone (Methylprednisolone 125 Mg/2 Ml Vial) 125 mg IV NOW ONE Stop: 06/06/20 11:05 Last Admin: 06/06/20 11:14 Dose: 125 mg Documented by: ROGER Vital Signs Vital signs: Vital Signs - 8 hr 06/06/20 12:30 06/06/20 13:00 06/06/20 13:30 Pulse Rate 58 L 66 60 Respiratory Rate 18 Blood Pressure Pulse Oximetry 97 97 92 06/06/20 14:00 06/06/20 14:32 06/06/20 14:33 Pulse Rate 59 L 65 60 Respiratory Rate Blood Pressure 103/50 L Pulse Oximetry 96 97 97 06/06/20 14:40 06/06/20 14:50 Pulse Rate 71 69 Respiratory Rate 18 Blood Pressure 111/59 L 111/59 L Pulse Oximetry 97 95 MDM - Abdominal Pain Lab Data Attestation: I reviewed the patient's lab results. Result diagrams: 06/06/20 11:13 06/06/20 11:13 Labs: Lab Results 06/06/20 06/06/20 Range/Units 11:13 11:13 WBC 8.2 (4.5-11.0) X10^3/uL RBC 4.97 (4.5-5.9) X10^6/uL Hgb 15.0 (13.5-17.5) g/dL Hct 44.3 (41-53) % MCV 89.2 (80-100) fL MCH 30.2 (26-34) PG MCHC 33.8 (30-36) % RDW 12.9 (11.6-14.8) % Plt Count 254 (150-400) X10^3/uL Neut % (Auto) 60.7 (50-75) % Lymph % (Auto) 28.3 (25-40) % [place] % (Auto) 8.8 (3-14) % Eos % (Auto) 1.4 L (2-4) % Baso % (Auto) 0.8 (0-2) % Neut # (Auto) 5000 (1765-3256) /uL Lymph # (Auto) 2300 (0879-9579) /uL [place] # (Auto) 700 (0-900) /uL Eos # (Auto) 100 (0-450) /uL Baso # (Auto) 100 (0-100) /uL Sodium 139 (137-145) mmol/L Potassium 3.9 (3.4-5.1) mmol/L Chloride 109 H (98-107) mmol/L Carbon Dioxide 25 (22-32) mmol/L BUN 14 (9-20) mg/dL Creatinine 1.21 (0.66-1.25) mg/dL Estimated GFR > 60.0 (>60) mL/min BUN/Creatinine Ratio 11.6 (6-22) Glucose 104 H (70-100) mg/dL Calcium 9.1 (8.4-10.2) mg/dL Total Bilirubin 0.7 (0.2-1.3) mg/dL AST 38 (17-59) IU/L ALT 66 H (<50) IU/L Alkaline Phosphatase 72 (38-126) U/L Total Protein 7.5 (6.3-8.2) g/dL Albumin 4.4 (3.5-5.0) g/dL Globulin 3.1 (1.7-4.1) g/dL Albumin/Globulin Ratio 1.4 (1.0-2.8) Lipase 46 (23-300) U/L Imaging Data CT scan - abdomen/pelvis: Radiologist's Impression: PROCEDURE: CT ABDOMEN PELVIS W CON INDICATIONS: umbilical pain hx of repair TECHNIQUE: After the administration of intravenous contrast, 5 mm thick sections acquired from the diaphragm to the symphysis. 5 mm coronal and sagittal reformats were acquired. For radiation dose reduction, the following was used: automated exposure control, adjustment of mA and/or kV according to patient size. COMPARISON: [facility], CT, CT ABDOMEN PELVIS W CON, 04/06/2020, 20:13. FINDINGS: Image quality: Excellent. ABDOMEN: Lung bases: Mild dependent atelectasis is seen in the lung bases. Heart size is normal. Solid organs: Diffusely decreased attenuation of the liver is compatible with diffuse hepatic steatosis. Enhancement surrounding the gallbladder fossa is most likely focal fatty sparing. Gallbladder appears normal. Biliary system is non dilated. Pancreas enhances normally. Spleen is normal in size and enhancement. No adrenal nodules. Kidneys demonstrate normal size and enhancement, without hydronephrosis. Peritoneum and bowel: Scattered diverticula are seen in the colon without signs of acute diverticulitis. The appendix appears normal. There are no signs of bowel obstruction. No free fluid or air. Nodes and vessels: No retroperitoneal or mesenteric adenopathy by size criteria. Aorta and inferior vena cava are normal in size. Miscellaneous: No ventral hernias. Focal soft tissue density is again seen in the periumbilical region with mildly increased surrounding fat stranding. PELVIS: Genitourinary: Bladder wall thickness is normal. Miscellaneous: No inguinal hernias or adenopathy. Bones: No suspicious bony lesions. No vertebral body compression fractures. IMPRESSION: 1. Focal soft tissue density is again seen in the umbilical region with increased surrounding fat stranding when compared to the prior CT from 04/06/2020, possibly related to inflammation or infection and/or postsurgical changes. 2. Colonic diverticulosis without signs of acute diverticulitis 3. Diffuse hepatic steatosis. Dictated by: Nadir Ford M.D. on 06/06/2020 at 11:2 MDM Narrative Medical decision making narrative: CT shows soft tissue density with increased surrounding fat stranding possibly related to inflammation or infection. He is afebrile without leukocytosis at this time more likely inflammatory although he has been taking ibuprofen without much relief 13:40 discussed case with surgery , at this time does not appear surgical recommends following up with his surgeon or in clinic Dr. Smith did surgery in 2018. Discharge Plan Departure Patient Disposition: Home Clinical Impression: Abdominal pain Qualifiers: Abdominal location: periumbilical Qualified Code(s): R10.33 - Periumbilical pain Instructions: DI for Abdominal Pain-Adult Activity Restrictions/Additional Instructions: *You have been diagnosed with abdominal pain *What to do: You have what is thought to have inflammation around her surgery site. At this time I do not bleed to need antibiotics however that may change. Your surgery was done here at [facility] with Dr. Smith in 2018 *Continue to take medications as directed Ketorolac 10 mg every 8 hours--do not combine with ibuprofen, Aleve, naproxen for other NSAIDs *Follow up with your primary care provider in 2-3 days *Return to ER if you should have increasing abdominal pain, fever, persistent vomiting, bloody stools or any new, worsening or concerning symptoms Prescriptions: New ketorolac 10 mg tablet 10 mg PO TID PRN (Reason: pain) Qty: 10 RF: 0 No Action oxycodone 5 MG tablet 5 mg PO Q4HP PRNQty: 30 RF: 0 sennosides [Senokot] 8.6 MG tablet 8.6 mg PO QDAY Qty: 10 RF: 1 docusate sodium [Colace] 100 MG capsule 100 mg PO BID Qty: 14 RF: 1 acetaminophen-codeine 30 MG/300 MG tablet 1 tab PO Q4HP PRNQty: 30 RF: 0 hydrocodone-acetaminophen [Tigerton] 5 MG/325 MG tablet 1 - 2 tab PO Q6HP PRNQty: 10 RF: 0 indomethacin 50 mg capsule 50 mg PO TID Qty: 10 RF: 0 esomeprazole magnesium [Nexium 24HR] 20 mg capsule,delayed release(DR/EC) 20 mg PO DAILY Qty: 30 RF: 0 Referrals: [facility] [Provider Group]
[2020-06-06 11:19] LABS: Add Manual Diff / Slide Review NO; Basophils Absolute Auto 100 /uL (0-100); Basophils Percent Auto 0.8 % (0-2); Eosinophils Absolute Auto 100 /uL (0-450); Eosinophils Percent Auto 1.4 % (2-4); Hematocrit 44.3 % (41-53); Lymphocytes Absolute Auto 2300 /uL (1100-4500); Lymphocytes Percent Auto 28.3 % (25-40); Mean Corpuscular HGB Conc 33.8 % (30-36); Mean Corpuscular Hemoglobin 30.2 PG (26-34); Mean Corpuscular Volume 89.2 fL (80-100); Monocytes Absolute Auto 700 /uL (0-900); Monocytes Percent Auto 8.8 % (3-14); Neutrophils Absolute Auto 5000 /uL (1500-7000); Neutrophils Percent Auto 60.7 % (50-75); Platelet Count 254 X10^3/uL (150-400); Red Blood Cell Count 4.97 X10^6/uL (4.5-5.9); Red Cell Distribution Width 12.9 % (11.6-14.8); White Blood Cell Count 8.2 X10^3/uL (4.5-11.0)
[2020-06-06 11:35] LABS: Alanine Aminotransferase 66 IU/L (<50); Albumin 4.4 g/dL (3.5-5.0); Albumin Globulin Ratio 1.4 (1.0-2.8); Alkaline Phosphatase 72 U/L (38-126); Aspartate Aminotransferase 38 IU/L (17-59); BUN Creatinine Ratio 11.6 (6-22); Bilirubin Total 0.7 mg/dL (0.2-1.3); Blood Urea Nitrogen 14 mg/dL (9-20); Calcium 9.1 mg/dL (8.4-10.2); Carbon Dioxide 25 mmol/L (22-32); Chloride 109 mmol/L (98-107); Estimated Glomerular Filt Rate > 60.0 mL/min (>60); Globulin 3.1 g/dL (1.7-4.1); Glucose 104 mg/dL (70-100); HEMOLYSIS < 15 (0-50); Lipase 46 U/L (23-300); Potassium 3.9 mmol/L (3.4-5.1); Sodium 139 mmol/L (137-145); Total Protein 7.5 g/dL (6.3-8.2)
[2020-06-06] MEDS: KETOROLAC 60 MG/2 ML VIAL 30 MG IV (14:29)
== END 2020-06-06 14:51 | disposition home or self-care (01) ==
PROVIDERS: Emergency Provider Emergency Medicine
DX: R10.33 Periumbilical pain (principal)
CPT/HCPCS: 36415; 74177; 80053; 83690; 85025; 96361; 96374; 96375; 99281; 99284; J1200; J1885; J2930

== ENCOUNTER 2020-06-25 01:18 | Emergency (ER) | payer OTHER, SELFPAY ==
[2020-06-25 01:20] VITALS: BP 147/92; PULSE 74; RESP 18; TEMP 37; O2SAT 95; BMI 41.8
[2020-06-25] MEDS: BUPIVACAINE 0.5% (PF) VIAL 5 ML SUBCUT (01:30)
[2020-06-25 02:51] LABS: Body Fluid Red Blood Cells 6409 /uL; Body Fluid Tot Nucleated Cells 7290 /uL
[2020-06-25 03:13] LABS: Crystals Body Fluid - IN-HOUSE NONE Present
[2020-06-25 03:14] LABS: Body Fluid Appearance CLOUDY
[2020-06-25 03:15] LABS: Body Fluid Clotted? NO CLOTS PRESENT; Body Fluid Color LIGHT PINK/BROWN
--- NOTE | 2020-06-25 03:19 | ED_ITS ---
HPI - Extremity Injury (Lower) General Chief Complaint: Extremity Injury, Lower Stated Complaint: Left knee pain Time Seen by Provider: 06/25/20 01:19 Source: patient and family Mode of arrival: Ambulatory Limitations: physical limitation History of Present Illness HPI Narrative: 39M nonsmoker with history of gout presents with his in the chief complaint of severe left knee pain and swelling over the past day or 2 in the absence of any injury. He denies any fever or chills. He does have a history of gout and states he has been taking his medications as prescribed without missing doses. He denies any dietary indiscretions. His pain is significant particularly with any range of motion get rid of his left knee. He comes in using crutches. He is otherwise well and free of complaint. He denies numbness, tingling or weakness. He denies any chest pain or shortness of breath. Denies any back pain or hip pain. He denies any trouble controlling bowel or bladder. Related Data Home Medications Medication Instructions Recorded Confirmed allopurinol 100 mg tablet 100 mg PO DAILY 06/24/20 06/24/20 bupropion HCl 300 mg 24 hr tablet, 300 mg PO QAM 06/24/20 06/24/20 extended release rizatriptan 10 mg tablet 10 mg PO ONCE 06/24/20 06/24/20 topiramate 50 mg capsule 50 mg PO DAILY 06/24/20 06/24/20 sprinkle,extended release 24 hr Previous Rx's Medication Instructions Recorded indomethacin 50 mg PO TID #10 cap 03/18/20 colchicine 0.6 mg PO DAILY #20 tab 06/25/20 Allergies Allergy/AdvReac Type Severity Reaction Status Date / Time gadobutrol [From Gadavist] Allergy Unknown Hives Verified 06/25/20 02:18 Review of Systems Constitutional Constitutional: Denies chills, Denies fatigue, Denies fever(s), Denies frequent falls, Denies lethargy and Denies weakness Eyes Eyes: Denies change in vision, Denies eye discharge, Denies irritation and Denies loss of vision ENT Ears, Nose, Mouth, and Throat: Denies change in voice, Denies dizziness, Denies neck pain, Denies sore throat and Denies throat swelling Cardiovascular Cardiovascular: Denies chest pain, Denies irregular heart rhythm, Denies lightheadedness, Denies palpitations, Denies dyspnea, Denies dyspnea on exertion and Denies orthopnea Respiratory Respiratory: Denies cough, Denies dyspnea, Denies dyspnea on exertion and Denies wheezing Gastrointestinal Gastrointestinal: Denies abdominal pain, Denies change in bowel habits, Denies diarrhea, Denies nausea and Denies vomiting Musculoskeletal Musculoskeletal: Reports arthralgias, Reports joint swelling, Reports limited range of motion, Denies neck pain and Denies numbness Integumentary/Breasts Skin/Breast: Denies pruritus, Denies erythema, Denies rash and Denies wounds Neurologic Neurologic: Denies behavioral changes, Denies confusion, Denies dizziness, Denies frequent falls, Denies loss of vision, Denies numbness and Denies wea kness Psychiatric Psychiatric: Denies anxiety, Denies behavioral changes, Denies confusion, Denies depression, Denies homicidal ideation and Denies suicidal ideation Endocrine Endocrine: Denies fatigue, Denies flushing and Denies palpitations Hematologic/Lymphatic Hematologic/Lymphatic: Denies easy bruising Allergic/Immunologic Allergic/Immunologic: Denies urticaria, Denies throat swelling and Denies wheezing Patient History Medical History Ankle pain Gout Knee pain, left Left ankle pain Umbilical hernia Surgical History History of umbilical hernia repair Hx of inguinal hernia repair Family History Brother Hypertension Diabetes mellitus Mother Skin cancer Grandmother Hypertension Lung cancer Diabetes mellitus Grandfather Diabetes mellitus Hypertension Social History marital status: household members: spouse occupational status: employed Smoking Status: Former smoker substance use type: does not use Smoking Status: Former smoker tobacco type: cigarettes alcohol intake frequency: other Substance Use Type: does not use Exam Narrative Exam Narrative: GEN: AOx3 and in mild distress EYES: Pupils are equal, round, and reactive to light and accommodation. Extraoccular muscles are intact bilaterally. There is no subconjunctival hem orrhage or exudate. CHEST: Lungs are clear to auscultation bilaterally and free of wheezes, rales, or rhonchi. Heart rate is regular rhythm, there are no murmurs, clicks, rubs, or gallops. There is no chest wall tenderness. ABD: Abdomen is soft and nontender. There is no guarding or rebound. Bowel sounds are normal in all 4 quadrants. There is no mass or organomegaly. EXT: Decreased range of motion of left knee secondary to pain. There is a mild effusion but no significant warmth and no redness. SKIN: Warm, pink, and dry. No erythema or rash Initial Vital Signs Initial Vital Signs: Vital Signs Temperature 98.6 F 06/25/20 01:20 Pulse Rate 74 06/25/20 01:20 Respiratory Rate 18 06/25/20 01:20 Blood Pressure 147/92 H 06/25/20 01:20 Pulse Oximetry 95 06/25/20 01:20 Procedures Joint Aspiration Joint Asp./Inject. 1: Time Out Performed: Yes Side of body: left Joint Aspirated: knee Ultrasound Guidance: No Skin Prep: Chlorhexidine Local Anesthetic: bupivacaine 0.25% Amount of anesthesia used (mL): 4 Needle Size Used: 22G Fluid Obtained: clear (yellowish/straw colored) Total fluid obtained (mL): 40 Patient Tolerated Procedure: Well and No complications Complications: none Course Orders Ordered: Discontinued Medications Bupivacaine HCl (Bupivacaine 0.5% (Pf) Vial) 5 ml SUBCUT NOW ONE Stop: 06/25/20 01:30 Last Admin: 06/25/20 01:30 Dose: 5 ml Documented by: TANIKA Colchicine (Colchicine 0.6 Mg Tablet) 1.2 mg PO NOW ONE Stop: 06/25/20 03:41 Last Admin: 06/25/20 03:50 Dose: 1.2 mg Documented by: TANIKA Consultations Consultation #1: discussion with [employer] consultant ortho (Gerald). We share the opinion that this is most likely gouty arthritis despite absence of crystals. Will treat typically and encourage follow up Vital Signs Vital signs: Vital Signs - 8 hr 06/25/20 01:20 Temperature 98.6 F Pulse Rate 74 Respiratory Rate 18 Blood Pressure 147/92 H Pulse Oximetry 95 MDM - Extremity Injury (Lower) Lab Data Labs: Lab Results 06/25/20 06/25/20 Range/Units 02:00 02:00 Fluid Color Light pink/brown Fluid Appearance Cloudy Fluid RBC 6409 /uL Fld Tot Nucleated Cell 7290 /uL Fluid Polynuclear WBCs 95 % Fluid Mononuclear WBCs 5 % Fluid Eosinophils Not Reportable Fluid Other Cells Not Reportable Fluid Crystals None present (NONE) Body Fluid Clot No clots present MDM Narrative Medical decision making narrative: Left knee pain without injury. Mild effusion but no erythema or other signs of infection. Septic arthritis considered but thought unlikley given exam and results of aspiration. Gouty arthritis most likely cause. Return precautions given and questions answered to the apparent satisfaction of patient and . Discharge Plan Departure Patient Disposition: Home Clinical Impression: Acute gouty arthritis Knee pain, left Qualifiers: Chronicity: acute Qualified Code(s): M25.562 - Pain in left knee Instructions: DI for Knee Pain Activity Restrictions/Additional Instructions: *You have been diagnosed with [ acute left knee pain, most likely gouty arthritis ] *What to do: *Take medications as directed: Continue taking your Allopurinol and Indomethacin. A prescription for Colchicine was [facility] in [place] at your request. *Follow up with your primary care provider in 2-3 days, call for an appointment. Let them know you were seen in the Emergency Department and that we ask that you be seen in follow up *Return to ER if you should have any new, worsening or concerning symptoms Prescriptions: New colchicine 0.6 mg tablet 0.6 mg PO DAILY Qty: 20 RF: 0 No Action allopurinol 100 mg tablet 100 mg PO DAILY RF: 0 bupropion HCl 300 mg tablet extended release 24 hr 300 mg PO QAM RF: 0 rizatriptan [Maxalt] 10 mg tablet 10 mg PO ONCE RF: 0 topiramate 50 mg capsule,sprinkle,ER 24hr 50 mg PO DAILY RF: 0 indomethacin 50 mg capsule 50 mg PO TID Qty: 10 RF: 0 Referrals: [facility] [Outside]
[2020-06-25 03:34] LABS: Mononuclear WBC Body Fluid 5 %; Polynuclear WBC Body Fluid 95 %
[2020-06-25] MEDS: COLCHICINE 0.6 MG TABLET 1.2 MG PO (03:50)
== END 2020-06-25 03:58 | disposition home or self-care (01) ==
PROVIDERS: Emergency Provider Emergency Medicine
DX: M10.9 Gout, unspecified (principal); M25.562 Pain in left knee
CPT/HCPCS: 20610; 87070; 87075; 87205; 89051; 89060; 99281; 99283

== ENCOUNTER → 2020-09-13 13:58 | Outpatient (CLI) | payer OTHER, SELFPAY ==
--- NOTE | 2020-09-13 14:00 | DI.MRI.S_ITS ---
PROCEDURE: MR THORACIC SPINE WO CON INDICATIONS: Other spondylosis with radiculopathy, thoracic TECHNIQUE: Noncontrast sagittal T1 spine echo and T2 fast spin echo, sagittal STIR, axial T1 and T2 fast spin echo through the thoracic spine. COMPARISON: [facility], CT, CT ABDOMEN PELVIS W CON, 06/06/2020, 12:01. [facility], CT, CT ABDOMEN PELVIS W CON, 04/06/2020, 20:13. FINDINGS: Image quality: Excellent. Alignment and Curvature: There is normal bony alignment. Bone Marrow: Marrow is of normal overall signal. There is a focus of predominantly hypointense T1 and increased T2/ STIR at the level of T6. This is not included within the field of view on prior exams. In addition, there is a hyperintense focus within the posterior 2nd left rib seen on series 7, image 8. This is not included within the field of view on prior exams. No acute vertebral body compression fractures. Spinal Cord: Visualized spinal cord is normal in size and signal. Paraspinous Soft Tissues: No paravertebral masses. Miscellaneous: On axial images, central canal and foramina appear widely patent at all scanned levels. Minimal disc bulge is present at T7-8. IMPRESSION: 1. Minimal disc bulge as above. No spinal stenosis. 2. Focus of predominantly hypointense T1 and hyperintense T2 signal at the level of T6. This is suggestive of atypical hemangioma. However, no priors are available for comparison. As clinically indicated, bone scan or thoracic spine with contrast is recommended for further evaluation. Dictated by: Elena Baxter M.D. on 09/13/2020 at 16:39 Approved by: Elena Baxter M.D. on 09/13/2020 at 16:45
== END ==
PROVIDERS: PCP Family Medicine; Referring Provider Anesthesiology Pain Medicine; Visit Provider Anesthesiology Pain Medicine
DX: M47.24 Other spondylosis with radiculopathy, thoracic region (principal)
CPT/HCPCS: 72146

== ENCOUNTER → 2021-06-29 07:43 | Outpatient (CLI) | payer OTHER, SELFPAY ==
--- NOTE | 2021-06-29 07:47 | DI.MRI.S_ITS ---
PROCEDURE: MR HEAD/BRAIN WO CON INDICATIONS: Dizziness and giddiness TECHNIQUE: Noncontrast axial T1 spin echo, axial T2 fast spin echo, sagittal and axial FLAIR, coronal T2 fast spin echo, axial gradient echo, axial diffusion and ADC through the brain. High-resolution axial fat saturated T1 and CISS sequences of the internal auditory canals. COMPARISON: None. FINDINGS: Image quality: Excellent. CSF Spaces: Basal cisterns are patent. No extra-axial fluid collections. Ventricles are normal in size and shape. Brain: No intracranial masses or hemorrhage. Carrillo/white matter interface is normal. Brainstem appears normal. Diffusion-weighted images demonstrate no acute ischemic insult. No chronic ischemic insults. Normal intravascular flow voids are present. Skull and face: Calvarium has normal marrow signal. Orbits appear normal. Sinuses: Sinuses and mastoids are clear. IMPRESSION: 1. Negative evaluation of the brain. 2. No acute process. No recent infarct. 3. Negative noncontrast evaluation of the internal auditory canals. Dictated by: Morelia Murrieta M.D. on 06/29/2021 at 8:41 Approved by: Morelia Murrieta M.D. on 06/29/2021 at 8:42
== END ==
PROVIDERS: PCP Family Medicine; Referring Provider Otolaryngology; Visit Provider Otolaryngology
DX: H90.3 Sensorineural hearing loss, bilateral (principal); H93.11 Tinnitus, right ear; R42 Dizziness and giddiness
CPT/HCPCS: 70551